=== PATIENT | male | born 1990 | race Caucasian/White ===

== ENCOUNTER 2021-06-04 19:18 | Inpatient (IN) | payer SELFPAY ==
[2021-06-04 21:21] VITALS: BMI 24.3
[2021-06-05] MEDS ORDERED: VANCOMYCIN 2 GRAM/400 ML BAG 2 GM in Premix Bag 1 BAG IVPB SCH (01:15)
[2021-06-05 01:52] LABS: Iron 24 ug/dL (65-175); Iron Binding Capacity, Total 239 mcg/dL (261-462)
[2021-06-05] MEDS: Acetaminophen 325 MG TAB PO PRN ×4 (02:45→20:23)
[2021-06-05] MEDS ORDERED: VANCOMYCIN 1.25 GM/250 ML BAG 1.25 GM in Premix Bag 1 BAG IVPB SCH ×2 (04:00→10:00)
[2021-06-05 05:34] LABS: #Lymphocytes 1.1 thou/uL (1.20-3.40); #Monocytes 0.1 thou/uL (0.11-0.59); #Neutrophils 4.5 thou/uL (1.40-6.50); %Eosinophils 0.1 % (0.0-10.0); %Lymphocytes 19.8 % (21.0-51.0); %Monocytes 2.2 % (0.0-10.0); %Neutrophils 77.9 % (42.0-75.0); Hemoglobin 12.5 g/dL (14.0-18.0); Mean Corpuscular HGB CONC 33.1 g/dL (32.0-36.0); Mean Corpuscular Hemoglobin 30.3 pg (27.0-31.0); Mean Corpuscular Volume 91.3 fL (78.0-98.0); Mean Platelet Volume 10.2 fL (7.4-10.4); Platelet Count 27 thou/uL (130-400); Red Blood Cell (RBC) Count 4.12 mill/uL (4.70-6.10); Reflex for Review?? NO; White Blood Cell (WBC) Count 5.8 thou/uL (4.8-10.8)
[2021-06-05] MEDS ORDERED: Cefepime 2 GM in Sodium Chloride 0.9% 100 ML IVPB SCH (06:00)
[2021-06-05 06:41] LABS: Anion Gap 10 mmol/L (10-20); BUN (Urea Nitrogen) 13 mg/dL (8.9-20.6); Calc. Creatinine Clearance 165 mL/min (70-130); Carbon Dioxide 25 mmol/L (22-29); Chloride 110 mmol/L (98-107); Glucose 132 mg/dL (70-105); Potassium 4.2 mmol/L (3.5-5.1); Sodium 141 mmol/L (136-145)
[2021-06-05] MEDS: Dexamethasone 40 MG in Sodium Chloride 0.9% 50 ML IVPB SCH (08:59)
[2021-06-05] MEDS ORDERED: Dexamethasone 10 MG/ML VIAL SLOW IVP SCH (09:00)
[2021-06-05] MEDS ORDERED: FLU VACC QS2021-22(6MOS UP)/PF 60 MCG/0.5 ML SYRINGE IM ONE (09:00)
[2021-06-05] MEDS ORDERED: Prevnar 13-Val Conj/PF 0.5 ML SYRINGE IM ONE (09:00)
[2021-06-05] MEDS ORDERED: Nicotine 14 MG PATCH TD SCH (14:00)
[2021-06-05 14:32] LABS: Hep B Surf Ag Non-Reactive S/CO (NonReactive); Hep C IgG Ab Non-Reactive (NonReactive); Hep C Index 0.13 S/CO (0-0.79)
[2021-06-05 14:39] LABS: HBSAB Concentration 184.54 mIU/mL; Hep B Surf AB Reactive (NonReactive)
[2021-06-05 16:19] LABS: Syphilis Antibody Nonreactive (Nonreactive); Syphilis Antibody Index 0.07 S/CO (<1.00 Non-Reactive)
[2021-06-05] MEDS: Raltegravir Potassium 400 MG TAB PO SCH (20:23)
[2021-06-05] MEDS: Lopinavir/Ritonavir 200-50mg TAB PO SCH (20:23)
[2021-06-05] MEDS: Benzonatate 100 MG CAP PO PRN (20:23)
[2021-06-05] MEDS: diphenhydrAMINE 25 MG CAP PO PRN (20:23)
[2021-06-06 01:31] LABS: Vancomycin, Trough 5.6 ug/mL
[2021-06-06 05:14] LABS: #Lymphocytes 1.1 thou/uL (1.20-3.40); #Monocytes 0.4 thou/uL (0.11-0.59); #Neutrophils 9.7 thou/uL (1.40-6.50); %Basophils 0.3 % (0.0-1.0); %Eosinophils 0.1 % (0.0-10.0); %Lymphocytes 9.6 % (21.0-51.0); %Monocytes 3.9 % (0.0-10.0); %Neutrophils 86.2 % (42.0-75.0); Mean Corpuscular HGB CONC 33.4 g/dL (32.0-36.0); Mean Corpuscular Hemoglobin 30.4 pg (27.0-31.0); Mean Corpuscular Volume 90.9 fL (78.0-98.0); Mean Platelet Volume 11.4 fL (7.4-10.4); Platelet Count 45 thou/uL (130-400); RBC Distribution Width 12.1 % (11.5-14.5); Red Blood Cell (RBC) Count 3.94 mill/uL (4.70-6.10); White Blood Cell (WBC) Count 11.2 thou/uL (4.8-10.8)
[2021-06-06 05:20] LABS: Anion Gap 7 mmol/L (10-20); BUN (Urea Nitrogen) 14 mg/dL (8.9-20.6); Calc. Creatinine Clearance 163 mL/min (70-130); Calcium 9.2 mg/dL (7.8-10.44); Carbon Dioxide 26 mmol/L (22-29); Chloride 112 mmol/L (98-107); Glucose 153 mg/dL (70-105); Sodium 141 mmol/L (136-145)
[2021-06-06] MEDS: Raltegravir Potassium 400 MG TAB PO SCH ×2 (09:22→20:06)
[2021-06-06] MEDS: Acetaminophen 325 MG TAB PO PRN ×3 (09:22→21:10)
[2021-06-06] MEDS: Sulfameth/Trimethoprim DS 800-160mg TAB PO SCH (09:24)
[2021-06-06] MEDS: Benzonatate 100 MG CAP PO PRN ×2 (09:24→21:10)
[2021-06-06] MEDS: Lopinavir/Ritonavir 200-50mg TAB PO SCH ×2 (09:24→20:02)
[2021-06-06] MEDS: Dexamethasone 40 MG in Sodium Chloride 0.9% 50 ML IVPB SCH (10:56)
[2021-06-06] MEDS ORDERED: Nicotine 21 MG PATCH TD SCH ×2 (11:59→12:15)
[2021-06-06] MEDS: diphenhydrAMINE 25 MG CAP PO PRN (19:16)
[2021-06-07 04:55] LABS: #Lymphocytes 0.6 thou/uL (1.20-3.40); #Monocytes 0.3 thou/uL (0.11-0.59); #Neutrophils 10.3 thou/uL (1.40-6.50); %Lymphocytes 5.1 % (21.0-51.0); %Monocytes 2.5 % (0.0-10.0); %Neutrophils 92.3 % (42.0-75.0); Hemoglobin 11.8 g/dL (14.0-18.0); Mean Corpuscular HGB CONC 32.1 g/dL (32.0-36.0); Mean Corpuscular Hemoglobin 29.5 pg (27.0-31.0); Mean Corpuscular Volume 92.1 fL (78.0-98.0); Platelet Count 89 thou/uL (130-400); RBC Distribution Width 12.5 % (11.5-14.5); White Blood Cell (WBC) Count 11.2 thou/uL (4.8-10.8)
[2021-06-07 05:14] LABS: Anion Gap 21 mmol/L (10-20); BUN (Urea Nitrogen) 17 mg/dL (8.9-20.6); Calc. Creatinine Clearance 161 mL/min (70-130); Calcium 9.3 mg/dL (7.8-10.44); Carbon Dioxide 16 mmol/L (22-29); Chloride 109 mmol/L (98-107); Glucose 133 mg/dL (70-105); Potassium 4.2 mmol/L (3.5-5.1); Sodium 142 mmol/L (136-145)
[2021-06-07] MEDS: Raltegravir Potassium 400 MG TAB PO SCH ×2 (09:22→20:21)
[2021-06-07] MEDS: Acetaminophen 325 MG TAB PO PRN (09:22)
[2021-06-07] MEDS: Dexamethasone 40 MG in Sodium Chloride 0.9% 50 ML IVPB SCH (09:23)
[2021-06-07] MEDS: Sulfameth/Trimethoprim DS 800-160mg TAB PO SCH (09:23)
[2021-06-07] MEDS: Nicotine 21 MG PATCH TD SCH (09:24)
[2021-06-07] MEDS: Benzonatate 100 MG CAP PO PRN ×2 (09:25→19:31)
[2021-06-07] MEDS: Lopinavir/Ritonavir 200-50mg TAB PO SCH ×2 (09:25→20:21)
[2021-06-07 15:14] LABS: %CD4 (Helper/Inducer) 6.9 % (30.8-58.5); Absolute CD4 55 /uL (359-1519); Lymphocytes/Gated Cell Count 0.8 x10E3/uL (0.7-3.1); Total Lymphocyte 15 % (Not Estab.); WBC Total Count 5.5 x10E3/uL (3.4-10.8)
[2021-06-07] MEDS: diphenhydrAMINE 25 MG CAP PO PRN (19:31)
[2021-06-08] MEDS: Dexamethasone 40 MG in Sodium Chloride 0.9% 50 ML IVPB SCH (08:20)
[2021-06-08] MEDS: Lopinavir/Ritonavir 200-50mg TAB PO SCH (08:21)
[2021-06-08] MEDS: Nicotine 21 MG PATCH TD SCH (08:21)
[2021-06-08] MEDS: Raltegravir Potassium 400 MG TAB PO SCH (08:22)
[2021-06-08] MEDS: Sulfameth/Trimethoprim DS 800-160mg TAB PO SCH (08:22)
[2021-06-08] MEDS: Acetaminophen 325 MG TAB PO PRN ×2 (08:31→13:29)
[2021-06-08] MEDS: Benzonatate 100 MG CAP PO PRN ×2 (08:33→13:29)
[2021-06-08 11:46] VITALS: BP 122/68; TEMP 97.4
[2021-06-09 08:17] LABS: LOG10 HIV-1 RNA 5.507 (.)
== END 2021-06-08 15:16 | disposition home or self-care (01) | DRG 977 ==
LOC: 2NO 19:18
PROVIDERS: ADMIT Internal Medicine; ATTEND Internal Medicine
PROC: 6A550Z2 Pheresis of Platelets, Single (ICD-10-PCS; principal; 2021-06-05)
DX: B20 Human immunodeficiency virus [HIV] disease (principal); D69.3 Immune thrombocytopenic purpura; K64.9 Unspecified hemorrhoids; Z23 Encounter for immunization; Z20.822 Contact with and (suspected) exposure to COVID-19; D69.59 Other secondary thrombocytopenia; F17.210 Nicotine dependence, cigarettes, uncomplicated; R50.9 Fever, unspecified; K59.00 Constipation, unspecified; D64.9 Anemia, unspecified; Z79.899 Other long term (current) drug therapy
CPT/HCPCS: 36415; 36416; 36430; 80048; 80202; 82728; 83540; 83550; 85025; 85048; 86361; 86706; 86780; 86803; 86850; 86900; 86901; 87340; 87385; 87536; 87899; 90471; 90686; G0008; J0692; J1100; J3370; J3490; P9035